=== PATIENT | male | born 1985 | race Two or more races ===

== ENCOUNTER 2019-05-11 14:33 | Inpatient (IN) | payer MEDICAID ==
[~2019-05-11] VITALS: Ht 162.6 cm; Wt 80.8 kg
[2019-05-11 15:28] LABS: Basophils # (auto) 0 uL; Basophils % (auto) 0.3 % (0.0-2.0); Eosinophils # (auto) 0.2 uL; Eosinophils % (auto) 2.5 % (0.0-7.0); Hematocrit 48.9 % (41.0-53.0); Hemoglobin 16.7 g/dL (13.5-17.5); Lymphocytes # (auto) 1.8 uL; Lymphocytes % (auto) 23.1 % (10.0-50.0); Mean Corpuscular Hemoglobin 29.6 pg (28.0-32.0); Mean Corpuscular Hgb Conc. 34.1 g/dL (32.0-36.0); Mean Corpuscular Volume 86.9 fL (80.0-100.0); Monocytes # (auto) 1.2 uL; Monocytes % (auto) 14.5 % (0.0-12.0); Neutrophils # (auto) 4.7 uL; Neutrophils % (auto) 59.6 % (37.0-80.0); Nucleated Red Blood Cells % 0.1 %; Platelet Count (auto) 215 10^3/uL (140-450); Red Blood Cells 5.62 10^6/uL (4.5-5.90); Red Cell Distribution Width 13.1 % (11.8-14.3); White Blood Cell 7.9 10^3/uL (4.4-10.8)
[2019-05-11] MEDS ORDERED: ONDANSETRON HCL 4 MG/2 ML VIAL IV ONE (15:30)
[2019-05-11] MEDS ORDERED: metroNIDAZOLE 500MG/100ML 100 ML IV ONE (15:30)
[2019-05-11] MEDS ORDERED: MORPHINE SULF INJ 2 MG/ML SYRINGE 1ML IV ONE ×2 (15:30→22:45)
[2019-05-11] MEDS ORDERED: SODIUM CHLORIDE 0.9% 1,000 ML IV ONE ×2 (15:30)
[2019-05-11] MEDS ORDERED: cefTRIAXone 1GM/50ML D5W 50 ML IV ONE ×2 (15:30→16:45)
[2019-05-11 15:44] LABS: BUN/Creatinine Ratio 18.1; Potassium 3.9 mmol/L (3.5-5.1)
[2019-05-11 15:45] LABS: Albumin 3.8 g/dL (3.4-5.0); Calcium 8.8 mg/dL (8.5-10.1)
[2019-05-11 15:48] LABS: Bilirubin, Total 0.3 mg/dL (0.2-1.0); Total Protein 7.2 g/dL (6.4-8.2)
[2019-05-11] MEDS ORDERED: MORPHINE SULF INJ 2 MG/ML SYRINGE 1ML IV PRN (16:45)
[2019-05-11] MEDS ORDERED: TEMAZEPAM 15 MG CAP PO PRN (16:45)
[2019-05-11] MEDS ORDERED: ENOXAPARIN SOD 40 MG/0.4 ML SYRINGE SC ONE (16:45)
[2019-05-11] MEDS ORDERED: PROMETHAZINE HCL 25 MG/ML 1ML IV PRN (16:45)
[2019-05-11] MEDS ORDERED: NITROGLYCERIN 0.4 MG SL TAB SL PRN (16:45)
[2019-05-11] MEDS: metroNIDAZOLE 500MG/100ML 100 ML IV SCH (17:07)
[2019-05-11] MEDS: SODIUM CHLORIDE 0.9% 1,000 ML IV SCH (17:14)
--- NOTE | 2019-05-11 18:00 | NUR ---
MED/SURG admit from ER [facility]EL admitted to [facility] unit after SBAR received. Patient oriented to Anusha Dewitt RN primary RN, unit, room, bed, and unit policies regarding patient care and visiting hours. Patient weighed by bedscale and encouraged to call if they need something. All questions and concerns addressed, patient verbalized understanding.
[2019-05-11 18:14] LABS: CRP High Sensitivity 0.74 mg/dL (< 0.3)
[2019-05-11 18:33] VITALS: BP 106/64
--- NOTE | 2019-05-11 18:39 | NUR ---
UA/STOOL SAMPLE SPOKE TO PATIENT AND FAMILY AT BEDSIDE REGARDING PENDING UA/STOOL SAMPLE. VERBALIZED UNDERSTANDING. LABELED SPECIMEN CUPS AND HAT LEFT AT BEDSIDE.
[2019-05-11] MEDS: ACETAMINOPHEN 500 MG TAB PO PRN (19:00)
--- NOTE | 2019-05-11 19:00 | NUR ---
ROUNDS UA COLLECTED AT THIS TIME AND SENT TO LAB VIA [facility]. PT C/O GENERALIZED HEADACHE. PRN ADMINISTERED PER MD ORDER. PT ASSISTED WITH PLACING PHONE CALL. ENCOURAGED TO CONTACT STAFF FOR PRN ASSISTANCE. CALL LIGHT WITHIN REACH.
[2019-05-11] MEDS ORDERED: INFLUENZA QUAD 2019-2020 0.5ml SYRG IM ONE (19:15)
[2019-05-11 19:19] LABS: Urine Bacteria NONE SEEN /hpf (None Seen); Urine Blood Negative /uL (Negative); Urine Mucus FEW (None Seen); Urine Specific Gravity 1.025 (1.001-1.035); Urine WBC <1 /hpf (0 - 3)
--- NOTE | 2019-05-11 19:24 | NUR ---
Opening Shift Note Assumed care of patient, awake and alert x 4. No S/S of distress/SOB. Bed is in lowest position and locked. Call light within reach. Board updated. NS infusing at 100 mls/hr. Instructed on POC and to call for assist PRN, will continue to monitor for changes Q1hr and PRN.
[2019-05-11 19:48] LABS: Alcohol, Urine < 3.0 mg/dL (0-5); Amphetamine Screen, Urine NEGATIVE (NEGATIVE); Barbiturate Scree,Urine NEGATIVE (NEGATIVE); Benzodiazephine Screen, Urine NEGATIVE (NEGATIVE); Cannabinoid Screen, Urine NEGATIVE (NEGATIVE); Cocaine Screen, Urine NEGATIVE (NEGATIVE); Opiate Scree,Urine POSITIVE (NEGATIVE); Phencyclidine Screen, Urine NEGATIVE (NEGATIVE)
[2019-05-11] MEDS: traMADol HCL 50 MG TAB PO PRN (20:18)
[2019-05-11] MEDS: FAMOTIDINE 20 MG TAB PO SCH (21:46)
--- NOTE | 2019-05-11 21:56 | NUR ---
Paging hospitalist to request pain medication for patient. Patient is reporting a headache, generalized, currently 6 out of 10. He has been reporting this pain on and off since 1800. he has been given his ordered PRN medications of Tylenol and Tramadol but neither has helped his pain for very long. Patient wants to know if there is any other medication he can have. Patient is here for colitis, though he is not reporting much pain in his abdomen. Vitals are WNL.
[2019-05-11 22:00] VITALS: BP 102/59
--- NOTE | 2019-05-11 22:42 | NUR ---
Spoke to TONY Omalley. Order: Morphine 2 mg IV once.
[2019-05-12] MEDS: metroNIDAZOLE 500MG/100ML 100 ML IV SCH ×3 (01:11→17:36)
[2019-05-12] MEDS: SODIUM CHLORIDE 0.9% 1,000 ML IV SCH ×3 (02:28→21:20)
[2019-05-12] MEDS: ACETAMINOPHEN 500 MG TAB PO PRN (04:49)
[2019-05-12] MEDS: traMADol HCL 50 MG TAB PO PRN ×2 (04:49→10:53)
[2019-05-12 05:00] VITALS: BP 117/69
[2019-05-12 08:14] VITALS: BP 103/55
[2019-05-12] MEDS: cefTRIAXone 1GM/50ML D5W 50 ML IV SCH (08:37)
[2019-05-12] MEDS: FAMOTIDINE 20 MG TAB PO SCH ×2 (10:53→21:19)
[2019-05-12 13:00] VITALS: BP 112/67
[2019-05-12 17:00] VITALS: BP 98/57
[2019-05-12 22:20] VITALS: BP 93/54
[2019-05-13] MEDS: metroNIDAZOLE 500MG/100ML 100 ML IV SCH ×3 (01:20→18:03)
[2019-05-13 05:22] VITALS: BP 104/63
[2019-05-13 06:48] LABS: Hematocrit 43.7 % (41.0-53.0); Hemoglobin 15.5 g/dL (13.5-17.5); Mean Corpuscular Hemoglobin 30.9 pg (28.0-32.0); Mean Corpuscular Hgb Conc. 35.5 g/dL (32.0-36.0); Mean Corpuscular Volume 87.1 fL (80.0-100.0); Platelet Count (auto) 188 10^3/uL (140-450); Red Blood Cells 5.01 10^6/uL (4.5-5.90); Red Cell Distribution Width 12.9 % (11.8-14.3); White Blood Cell 6.4 10^3/uL (4.4-10.8)
[2019-05-13 06:59] LABS: Band Neutrophils % (manual) 0; Basophils % (manual) 0 (0.0-2.0); Metamyelocytes % 0; Myelocytes % 0; Promyelocytes % 0
[2019-05-13 07:00] LABS: Blast Cells 0
[2019-05-13 07:10] LABS: Calcium 8.2 mg/dL (8.5-10.1); Magnesium 1.9 mg/dL (1.6-2.6); Potassium 4.1 mmol/L (3.5-5.1)
[2019-05-13 07:14] LABS: BUN/Creatinine Ratio 7.7
[2019-05-13 07:44] LABS: Eosinophils % (manual) 3 (0-7); Lymphocytes % (manual) 43 (10.0-50.0); Monocytes % (manual) 14 (0-12); Reactive Lymphocytes 5
--- NOTE | 2019-05-13 07:47 | NUR ---
OPENING SHIFT NOTE: PATIENT AWAKE RESTING IN BED. BED IN LOWEST LOCKED POSITION. UPDATED PATIENT ON PLAN OF CARE. ASSISTED PATIENT TO BATHROOM, NO REPORTS OF BM, ONLY GAS. PATIENT DENIES ANY PAIN. CALL LIGHT WITHIN REACH, WILL CONTINUE TO MONITOR.
[2019-05-13] MEDS: cefTRIAXone 1GM/50ML D5W 50 ML IV SCH (08:24)
[2019-05-13 08:37] VITALS: BP 102/62
[2019-05-13] MEDS: SODIUM CHLORIDE 0.9% 1,000 ML IV SCH ×2 (08:44→18:57)
--- NOTE | 2019-05-13 10:08 | NUR ---
STOOL SAMPLE OBTAINED. SENT TO LAB.
--- NOTE | 2019-05-13 10:16 | NUR ---
ASSISTED PATIENT WITH SHOWER. IV SITE COVERED.
[2019-05-13] MEDS: FAMOTIDINE 20 MG TAB PO SCH ×2 (10:43→22:05)
--- NOTE | 2019-05-13 11:08 | NUR ---
PATIENT OUT OF BED, AMBULATING IN THE UNIT.
[2019-05-13] MEDS ORDERED: MAGNESIUM SULFATE 1GM/100ML 100 ML IV ONE (11:30)
[2019-05-13 12:50] VITALS: BP 100/66
[2019-05-13] MEDS ORDERED: GOLYTELY 4L KIT PO ONE (14:15)
--- NOTE | 2019-05-13 14:18 | NUR ---
DR. ARGUELLES AT BEDSIDE.
--- NOTE | 2019-05-13 14:20 | NUR ---
CONSENTS SIGNED: PATIENT GIVEN BOWEL PREP, GOLYTELY. ALL INSTRUCTIONS GIVEN TO THE PATIENT. PATIENT VERBALIZED UNDERSTANDING. CONSENTS SIGNED FOR TOMORROW'S PROCEDURE SIGNED AND PLACED IN THE HARD CHART. WILL CONTINUE TO MONITOR.
[2019-05-13 17:00] VITALS: BP 101/56
--- NOTE | 2019-05-13 19:15 | NUR ---
Opening Shift Note Received report from Arianne TAYLOR. Assumed care of patient, awake and alert. No S/S of distress/SOB, with complaints od moderate abdominal pain. Instructed on POC and to call for assist PRN, will continue to monitor for changes Q1hr and PRN.
--- NOTE | 2019-05-13 19:27 | NUR ---
CARE ENDORSED TO ANNELISE TAYLOR.
[2019-05-13] MEDS: traMADol HCL 50 MG TAB PO PRN (22:06)
[2019-05-13 23:38] VITALS: BP 106/72
[2019-05-14] MEDS: metroNIDAZOLE 500MG/100ML 100 ML IV SCH ×3 (04:01→16:46)
[2019-05-14] MEDS: SODIUM CHLORIDE 0.9% 1,000 ML IV SCH ×3 (05:00→21:44)
[2019-05-14 05:48] VITALS: BP 99/58
[2019-05-14] MEDS ORDERED: GOLYTELY 4L KIT PO ONE (06:00)
--- NOTE | 2019-05-14 07:45 | NUR ---
OPENING NOTE ASSUMED CARE OF PT. ALERT AND ORIENTED. NO S/S OF SOB/DISTRESS NOTED. DENIES ANY PAIN. SAFETY PRECAUTIONS IN PLACE. BED SET TO LOWEST POSITION/LOCKED. BEDSIDE RAILS UP X2. CALL LIGHT WITHIN REACH. INSTRUCTED PT TO CALL FOR ASSISTANCE. UPDATED ON POC. PT VERBALIZED UNDERSTANDING. WILL CONTINUE TO MONITOR Q1HR AND PRN.
[2019-05-14 09:00] VITALS: BP 141/70
[2019-05-14] MEDS: FAMOTIDINE 20 MG TAB PO SCH ×2 (09:16→21:44)
[2019-05-14] MEDS: cefTRIAXone 1GM/50ML D5W 50 ML IV SCH (09:16)
[2019-05-14 10:12] LABS: INR 1.16 (0.9-1.15); Partial Thromboplastin Time 31.9 sec (23.64-32.05)
[2019-05-14] MEDS ORDERED: SODIUM CHLORIDE LOCK 10 ML ONE (10:56)
[2019-05-14] MEDS ORDERED: diphenhdrAMINE HCL 50 MG/1 ML VL ONE (10:57)
--- NOTE | 2019-05-14 11:45 | NUR ---
OFF UNIT PATIENT OFF UNIT VIA BED TO PREOP. NO S/S SOB/DISTRESS NOTED.
[2019-05-14] MEDS ORDERED: LEVO500T21 PO (11:53)
[2019-05-14] MEDS ORDERED: METR500T PO (11:53)
[2019-05-14] MEDS: MIDAZOLAM HCL 5 MG/ML-1ML VIAL ONE ×2 (12:34→12:41)
[2019-05-14] MEDS: fentaNYL CITRATE 100 MCG/2 ML VL ONE ×2 (12:34→12:41)
--- NOTE | 2019-05-14 13:00 | NUR ---
UNABLE TO OBTAIN 1300 VITALS. PT IS NOT IN ASSIGNED ROOM AT THIS TIME
--- NOTE | 2019-05-14 14:26 | NUR ---
BACK ON UNIT PATIENT BACK ON UNIT VIA BED FROM PACU. NO S/S OF SOB/DISTRESS NOTED. BED ALARM ON. FAMILY AT BEDSIDE. WILL CONTINUE TO MONITOR Q1HR AND PRN.
[2019-05-14 17:00] VITALS: BP 102/63
[2019-05-14 22:00] VITALS: BP 95/66
[2019-05-15] MEDS: metroNIDAZOLE 500MG/100ML 100 ML IV SCH ×2 (01:05→09:36)
[2019-05-15 05:00] VITALS: BP 116/61
[2019-05-15 08:00] VITALS: BP 137/87
--- NOTE | 2019-05-15 08:00 | NUR ---
Opening Shift Note Assumed care of patient, awake and alert. No S/S of distress/SOB or pain. Instructed on POC and to call for assist PRN, will continue to monitor for changes Q1hr and PRN.
[2019-05-15] MEDS: cefTRIAXone 1GM/50ML D5W 50 ML IV SCH (08:27)
[2019-05-15 09:00] VITALS: BP 137/87
[2019-05-15] MEDS: FAMOTIDINE 20 MG TAB PO SCH (09:35)
[2019-05-15] MEDS: SODIUM CHLORIDE 0.9% 1,000 ML IV SCH (10:44)
--- NOTE | 2019-05-15 10:58 | NUR ---
CLEARED FOR DISCHARGE PER DR. ARGUELLES Spoke with Dr. Arguelles regarding negative C. Diff result. Dr. Arguelles stated that the patient is clear to go for discharge.
[2019-05-15 11:34] VITALS: BP 137/87
--- NOTE | 2019-05-15 13:06 | NUR ---
Discharge Discharge instructions given as ordered. Encourage to follow up with PMD as instructed. Follow-up appointment made, information given to patient. All questions and concerns addressed. Patient verbalized understanding. IV removed with catheter intact, and pressure dressing applied. Patient taken to vehicle with all personal belongings, accompanied family members. No distress noted at time of departure.
== END 2019-05-15 13:00 | disposition home or self-care (01) | DRG 245 ==
LOC: ER 14:33 → OVERFLOW 14:34 → TELE-WESTW 18:00 → WEST WING 05-13 07:35
PROVIDERS: ADMIT Internal Medicine; ATTEND Internal Medicine
PROC: 0DBL8ZX Excision of Transverse Colon, Via Natural or Artificial Opening Endoscopic, Diagnostic (ICD-10-PCS; 2019-05-14)
PROC: 0DBM8ZX Excision of Descending Colon, Via Natural or Artificial Opening Endoscopic, Diagnostic (ICD-10-PCS; 2019-05-14)
PROC: 0DBH8ZX Excision of Cecum, Via Natural or Artificial Opening Endoscopic, Diagnostic (ICD-10-PCS; 2019-05-14)
PROC: 0DBK8ZX Excision of Ascending Colon, Via Natural or Artificial Opening Endoscopic, Diagnostic (ICD-10-PCS; principal; 2019-05-14 12:32)
DX: K51.00 Ulcerative (chronic) pancolitis without complications (principal); E66.9 Obesity, unspecified; G89.29 Other chronic pain; E78.5 Hyperlipidemia, unspecified; F17.210 Nicotine dependence, cigarettes, uncomplicated; Z80.0 Family history of malignant neoplasm of digestive organs; Z86.19 Personal history of other infectious and parasitic diseases; Z80.43 Family history of malignant neoplasm of testis; Z88.0 Allergy status to penicillin; Z68.30 Body mass index [BMI] 30.0-30.9, adult
CPT/HCPCS: 36415; 45380; 74176; 80048; 80053; 80061; 80307; 81001; 82150; 83605; 83690; 83735; 85007; 85025; 85027; 85610; 85730; 86141; 87040; 87045; 87427; 87493; 96365; 96367; 96375; G0378; J0696; J2250; J2405; J3490

== ENCOUNTER → 2019-10-27 | Emergency (ER) | payer MEDICAID ==
[~2019-10-27] VITALS: Ht 162.6 cm; Wt 74.8 kg
[~2019-10-27] MED LIST: LEVO500T21 PO; METR500T PO; ONDANSETRON HCL 4 MG/2 ML VIAL IV ONE; PANTOPRAZOLE 40 MG TAB PO ONE
[2019-10-27 13:29] LABS: Basophils # (auto) 0.1 10 ^3/uL (0-0.2); Basophils % (auto) 0.5 % (0.0-2.0); Eosinophils # (auto) 0.1 10 ^3/uL (0-0.8); Eosinophils % (auto) 1.1 % (0.0-7.0); Hematocrit 46.4 % (41.0-53.0); Hemoglobin 16.3 g/dL (13.5-17.5); Lymphocytes % (auto) 18.2 % (10.0-50.0); Mean Corpuscular Hemoglobin 30.7 pg (28.0-32.0); Mean Corpuscular Hgb Conc. 35.2 g/dL (32.0-36.0); Mean Corpuscular Volume 87.2 fL (80.0-100.0); Monocytes # (auto) 0.7 10 ^3/uL (0-1.3); Monocytes % (auto) 6.2 % (0.0-12.0); Neutrophils # (auto) 8.3 10 ^3/uL (1.6-8.6); Platelet Count (auto) 245 10^3/uL (140-450); Red Blood Cells 5.32 10^6/uL (4.5-5.90); Red Cell Distribution Width 13.1 % (11.8-14.3); White Blood Cell 11.2 10^3/uL (4.4-10.8)
[2019-10-27 13:47] LABS: Albumin 3.7 g/dL (3.4-5.0); Calcium 9.1 mg/dL (8.5-10.1); Potassium 3.8 mmol/L (3.5-5.1)
[2019-10-27 13:52] LABS: BUN/Creatinine Ratio 8.4; Bilirubin, Total 0.4 mg/dL (0.2-1.0); Total Protein 7.1 g/dL (6.4-8.2)
[2019-10-27 14:26] VITALS: BP 107/68
[2019-10-27 14:41] LABS: Urine Bacteria NONE SEEN /hpf (None Seen); Urine Blood Negative /uL (Negative); Urine Mucus FEW (None Seen); Urine Specific Gravity 1.017 (1.001-1.035); Urine WBC 1 /hpf (0 - 3)
[2019-10-27 14:51] LABS: Alcohol, Urine < 3.0 mg/dL (0-5); Amphetamine Screen, Urine NEGATIVE (NEGATIVE); Barbiturate Scree,Urine NEGATIVE (NEGATIVE); Benzodiazephine Screen, Urine NEGATIVE (NEGATIVE); Cannabinoid Screen, Urine NEGATIVE (NEGATIVE); Cocaine Screen, Urine NEGATIVE (NEGATIVE); Opiate Scree,Urine NEGATIVE (NEGATIVE); Phencyclidine Screen, Urine NEGATIVE (NEGATIVE)
== END | disposition home or self-care (01) ==
LOC: ER 11:56
DX: K29.70 Gastritis, unspecified, without bleeding (principal); K21.9 Gastro-esophageal reflux disease without esophagitis; F17.210 Nicotine dependence, cigarettes, uncomplicated; Z88.0 Allergy status to penicillin; Z79.2 Long term (current) use of antibiotics; Z79.899 Other long term (current) drug therapy
CPT/HCPCS: 36415; 74176; 80053; 80307; 81001; 82150; 83690; 83735; 85025; 96374; 99284; J2405